=== PATIENT | female | born 1935 | race Caucasian/White ===

== ENCOUNTER → 2016-06-27 | Outpatient (REF) ==
[2016-06-27 21:51] LABS: BILIRUBIN,URINE Negative (Negative); CLARITY,URINE Cloudy; COLOR,URINE Yellow; GLUCOSE, URINE (UA) Negative (Negative); LEUKOCYTE ESTERASE ,URINE 1+ (Negative); UROBILINOGEN,URINE 0.2 mg/dL (0.2-1.0)
[2016-06-27 21:54] LABS: RBC,URINE >100 /HPF; URINE CENTRIFUGED VOLUME 11 mL
== END ==
LOC: LAB 21:06
PROVIDERS: ATTEND Family Medicine
DX: N39.0 Urinary tract infection, site not specified (principal)
CPT/HCPCS: 81003; 81015; 87088

== ENCOUNTER → 2016-07-02 | Outpatient (CLI) | payer OTHER | LOC: RAD 13:07 → EDSTATUS 13:30 → EDUNIT# 13:30 | PROVIDERS: ATTEND Family Medicine | DX: M81.0 Age-related osteoporosis without current pathological fracture (principal) | CPT/HCPCS: 77080 ==

== ENCOUNTER → 2016-07-02 | Outpatient (REF) ==
[2016-07-02 17:35] LABS: IRON 25 ug/dL (50-170); UNBOUND IRON CONTENT 436 ug/dl (126-382)
== END ==
LOC: CLAB.BLUES 13:07
PROVIDERS: ATTEND Family Medicine
DX: D64.9 Anemia, unspecified (principal)
CPT/HCPCS: 82728; 83540; 83550; 85045

== ENCOUNTER → 2016-07-16 | Outpatient (REF) ==
[2016-07-16 13:21] LABS: BILIRUBIN,URINE Negative (Negative); CLARITY,URINE Clear; COLOR,URINE Yellow; GLUCOSE, URINE (UA) Negative (Negative); LEUKOCYTE ESTERASE ,URINE Negative (Negative); PH,URINE 7.5 (5.0 - 8.0); UROBILINOGEN,URINE 0.2 mg/dL (0.2-1.0)
[2016-07-16 13:25] LABS: URINE CENTRIFUGED VOLUME 12 mL
== END ==
LOC: CLAB.BLUES 12:34
PROVIDERS: ATTEND Family Medicine
DX: N39.0 Urinary tract infection, site not specified (principal)
CPT/HCPCS: 81003; 81015

== ENCOUNTER → 2016-09-15 | Outpatient (REF) ==
[2016-09-15 15:11] LABS: MEAN CORPUSCULAR HEMOGLOBIN 27.2 PG (26.0-34.0); MEAN CORPUSCULAR HGB CONC 34.3 g/dL (31.0-37.0); MEAN PLATELET VOLUME 9.9 FL (6.0-9.5); PLATELET COUNT 247 10^3uL (150-450); WHITE BLOOD COUNT 5.59 10^3uL (4.0-11.0)
[2016-09-15 15:25] LABS: MEAN CORPUSCULAR VOLUME 79 FL (80-100)
[2016-09-15 15:42] LABS: ALBUMIN 3.9 g/dL (3.4-5.0); ANION GAP 14.1 MEQ/L (3-15); TOTAL PROTEIN 6.9 g/dL (6.4-8.5)
[2016-09-15 16:02] LABS: BAND NEUTROPHILS % 0 % (0-6); EOSINOPHILS % 0 % (0-4); LYMPHOCYTES # 1.8 #; MONOCYTES # 0.4 #; MONOCYTES % 8 % (3-11); SEGMENTED NEUTROPHILS % 60 % (51-67); TOTAL CELLS COUNTED 100
[2016-09-15 16:03] LABS: RBC MORPH NORMAL (NORMAL)
== END ==
LOC: CLAB.BLUES 14:58
PROVIDERS: ATTEND Family Medicine
DX: D64.9 Anemia, unspecified (principal); I48.91 Unspecified atrial fibrillation
CPT/HCPCS: 80053; 83540; 85007; 85027